=== PATIENT | male | born 1975 | race Caucasian/White ===

== ENCOUNTER 2017-04-10 10:45 | Emergency (ER) | payer BC ==
--- NOTE | ~2017-04-10 | CR63 ---
[facility]. [facility] A Service of [facility] & [facility] RADIOLOGY TEXT RESULTS PATIENT: JULIEN HILL JR LOCATION: SED : 75 UNIT #: [id number] AGE: [address]: Johnie Hoffman MD SEX: M ORDER DR: [id number] [address] [address] [id number] MR#: [id number] Acc #: [id number] NAME: JULIEN HILL JR : 1975 SEX: M STUDY DATE/TIME: 04/10/2017 UNIT: SED ROOM: STUDY DESCRIPTION: CR Chest 2 View Attending Physician: Johnie Hoffman M.D. Ordering Physician: Johnie Hoffman M.D. MEDICAL IMAGING REPORT This report is preliminary unless electronic signature is present. EXAM Chest 2 views 04/10/2017 1140 hours HISTORY Right-sided chest pain with cough since yesterday. COMPARISON 01/09/2008. FINDINGS Upright PA and lateral views of the chest demonstrate normal cardiac, mediastinal and hilar contours. The lungs are well expanded with stable calcified granulomata in the left upper lung. There are no acute pulmonary densities or pleural effusions. IMPRESSION Stable benign calcified granulomatous changes. There are no acute cardiopulmonary findings. Dictated by... Halley Paniagua M.D. THIS IS AN ELECTRONICALLY VERIFIED REPORT Halley Paniagua M.D. at 04/11/2017 9:29 AM Bindu TD: 04/10/2017 16:01 JOB #: [id number] MEDICAL IMAGING REPORT Page 1 of 1
[~2017-04-10 10:45] MED LIST: ACTOS PO; AMOXICILLIN; AMOXICILLIN PO; BACTRIM DS TABL1 TA1 PO; CLEOCIN HCL150 MG PO; DIABETES MED; DIABETIC PILL; DICLOFENAC PO; DOXYCYCLINE150 MG PO; FAMOTIDINE PO; METFORMIN; METFORMIN HCL500 M1 PO; METFORMIN HCL500 M2 PO; METFORMIN PO; MIRALAX255 GM PO; NO MEDICATIONS; PHENERGAN W/CO120 ML PO; PROCTOFOAM-HC F10 GM PR; TRIAMCINOLONE AC1 GM EXT; ULTRAM PO; VICODIN 5/500 T1 TAB PO
[2017-04-10 10:56] LABS: URINE SOURCE CLEAN CATCH
[2017-04-10 11:00] LABS: URINE APPEARANCE CLEAR; URINE BILIRUBIN NEG (NEG); URINE BLOOD NEG (NEG); URINE COLOR YELLOW; URINE GLUCOSE 300 MG/DL (NORM); URINE KETONE NEG (NEG); URINE LEUKOCYTE ESTERASE NEG (NEG); URINE NITRATE NEG (NEG); URINE PROTEIN NEG (NEG); URINE SPECIFIC GRAVITY 1.025 (1.003-1.035); URINE UROBILINOGEN 0.2 MG/DL (NORM)
[2017-04-10 11:01] LABS: MICRO INDICATED? NO
== END 2017-04-10 12:23 | disposition home or self-care (01) ==
LOC: SED 10:45
PROVIDERS: Emergency Medicine
DX: S29.012A Strain of muscle and tendon of back wall of thorax, initial encounter (principal); F17.200 Nicotine dependence, unspecified, uncomplicated; X50.1XXA Overexertion from prolonged static or awkward postures, initial encounter; Y92.9 Unspecified place or not applicable
CPT/HCPCS: 71020; 81003; 99283

== ENCOUNTER 2017-06-17 07:24 | Emergency (ER) | payer BC ==
[2017-06-17] MEDS ORDERED: ANTIBIOTIC (07:35)
[2017-06-17] MEDS ORDERED: GERD MED (07:35)
[2017-06-17 08:39] LABS: URINE SOURCE CLEAN CATCH
[2017-06-17 08:40] LABS: BASOPHIL# 0.1 X10e3 (0-0.3); BASOPHIL% 0.8 % (0-2.5); EOSINOPHIL# 0.3 X10e3 (0-0.7); EOSINOPHIL% 2.9 % (0.0-7.0); HEMATOCRIT 44.3 % (38.0-50.0); HEMOGLOBIN 15.1 gm/dL (13.0-16.0); LYMPHOCYTE# 1.4 X10e3 (1.0-3.5); LYMPHOCYTE% 15.7 % (17.0-45.0); MEAN CELL VOLUME 88.2 FL (83-96); MEAN CORPUSCULAR HEMOGLOBIN 30.1 PG (28-34); MEAN CORPUSCULAR HGB CONC 34.1 g/dL (30-36); MEAN PLATELET VOLUME 10.8 FL (6.5-11.5); MONOCYTE# 0.5 X10e3 (0-1.0); MONOCYTE% 5.4 % (3.0-12.0); NEUTROPHIL# 6.7 X10e3 (1.5-7.1); NEUTROPHIL% 75.2 % (40-75); PLATELET COUNT 144 X10e3 (140-420); RED BLOOD COUNT 5.03 X10e (3.90-5.60); RED CELL DISTRIBUTION WIDTH 13.6 % (11.0-15.5); WHITE BLOOD COUNT 8.9 X10e3 (4.0-10.5)
[2017-06-17 08:43] LABS: URINE APPEARANCE CLEAR; URINE BILIRUBIN NEG (NEG); URINE BLOOD NEG (NEG); URINE COLOR YELLOW; URINE GLUCOSE 300 MG/DL (NORM); URINE KETONE NEG (NEG); URINE LEUKOCYTE ESTERASE NEG (NEG); URINE NITRATE NEG (NEG); URINE PH 5.5 (5-8); URINE PROTEIN NEG (NEG); URINE SPECIFIC GRAVITY 1.025 (1.003-1.035); URINE UROBILINOGEN 0.2 MG/DL (NORM)
[2017-06-17 08:43] LABS: DIFF IND NO
[2017-06-17 08:44] LABS: MICRO INDICATED? NO
[2017-06-17 09:00] LABS: ALBUMIN SERUM 4.3 g/dL (3.5-5.0); ALKALINE PHOSPHATASE 75 U/L (32-92); ALT (SGPT) 66 U/L (10-40); AMYLASE 7 U/L (0-46); AST (SGOT) 35 U/L (10-42); BILIRUBIN,TOTAL 0.7 mg/dL (0.2-2.0); BLOOD UREA NITROGEN 12 mg/dL (9-23); CALCIUM SERUM 8.8 mg/dL (8.4-10.2); CARBON DIOXIDE 28 mmol/L (22-31); CHLORIDE 103 mmol/L (100-111); CREATININE SERUM 0.8 mg/dL (0.6-1.4); GLUCOSE FASTING 301 mg/dL (70-110); LIPASE 24 U/L (22-51); PROTEIN TOTAL SERUM 6.9 g/dL (6.0-8.3); SODIUM 136 mmol/L (135-145)
[2017-06-17 09:03] LABS: BILIRUBIN, DIRECT <0.1 mg/dL (0.0-0.2); BILIRUBIN,INDIRECT 0.6 mg/dL (0.0-0.9)
== END 2017-06-17 10:02 | disposition home or self-care (01) ==
LOC: SED 07:24
PROVIDERS: Student in an Organized Health Care Education/Training Program
DX: E11.65 Type 2 diabetes mellitus with hyperglycemia (principal); R11.2 Nausea with vomiting, unspecified; R19.7 Diarrhea, unspecified
CPT/HCPCS: 36415; 80048; 80076; 81003; 82150; 83690; 85025; 99284